=== PATIENT | male | born 1990 | race African-American/Black ===

== ENCOUNTER 2019-09-15 12:04 | Emergency (ER) | payer SELFPAY ==
[2019-09-15 12:09] VITALS: BP 156/80; PULSE 85; TEMP 98.4; BMI 26.3
[2019-09-15] MEDS ORDERED: DEXAMETHASONE LIQUID 0.5 MG/5 ML PO ONE (12:26)
[2019-09-15] MEDS ORDERED: DEXAMETHASONE SOD PHOSPHATE 10 MG/1 ML VIAL ONE (12:28)
[2019-09-15 13:00] LABS: BASO % 0.6 % (0-2.0); EOS % 0.4 % (0-4.5); HEMATOCRIT 44.3 % (35.4-49); HEMOGLOBIN 14.7 GM/dL (11.7-16.9); LYMPH % 24.1 % (8-40); MCH 30.3 pg (25.7-33.7); MCHC 33.2 g/dl (32.0-35.9); MEAN CELL VOLUME 91.1 fl (80-96); MEAN PLT VOLUME 9.8 fl (7.5-11.1); MONO % 7.8 % (3.8-10.2); NEUT % 67.1 % (42.8-82.8); PLATELET COUNT 256 K/MM3 (134-434); RBC 4.86 M/mm3 (4.00-5.60); RDW 13.1 % (11.9-15.9); WHITE BLOOD COUNT 9.9 K/mm3 (4.0-10.0)
[2019-09-15 13:27] LABS: ALBUMIN 4.2 g/dl (3.4-5.0); BILIRUBIN,TOTAL 1.3 mg/dL (0.2-1); CALCIUM 9.4 mg/dL (8.5-10.1); TOT PROT 8.3 g/dl (6.4-8.2)
--- NOTE | 2019-09-15 15:03 | PDOC ---
History of Present Illness - General Chief Complaint: Sore Throat Stated Complaint: SORE THROAT Time Seen by Provider: 09/15/19 12:20 - History of Present Illness Initial Comments: 09/15/19 15:02 28-year-old male with sore throat x2 days no systemic symptoms Past History - Past Medical History Allergies/Adverse Reactions: Allergies Allergy/AdvReac Type Severity Reaction Status Date / Time No Known Allergies Allergy Verified 09/15/19 12:09 Home Medications: Ambulatory Orders Ferrous Sulfate [Feosol] 325 mg PO BIDWM #60 ud 09/30/15 Celecoxib [CeleBREX -] 200 mg PO BID #60 capsule 10/28/15 Colchicine [Colcrys] 1.2 mg PO BID #120 tablet 10/28/15 Oxycodone HCl/Acetaminophen [Percocet 5/325 -] 1 tab PO Q6H #20 tablet 10/28/15 Ranitidine [Zantac -] 150 mg PO BID #60 tablet 10/28/15 Penicillin V Potassium [Pen Vee K -] 500 mg PO QID #40 tablet 09/15/19 Cardiac Disorders: Yes (Pericarditis) COPD: No - Surgical History Cardiac Surgery: Yes - Immunization History Immunization Up to Date: Yes - Psycho Social/Smoking Cessation Hx Smoking History: Never smoked Have you smoked in the past 12 months: Yes Information on smoking cessation initiated: No Hx Alcohol Use: No Drug/Substance Use Hx: No Substance Use Type: Marijuana Hx Substance Use Treatment: No Review of Systems - Review of Systems Constitutional: No: Fever HEENTM: Yes: Throat Pain, Throat Swelling, Difficulty Swallowing *Physical Exam - Vital Signs Last Vital Signs Temp Pulse Resp BP Pulse Ox 98.4 F 85 19 156/80 100 09/15/19 12:07 09/15/19 12:07 09/15/19 12:07 09/15/19 12:07 09/15/19 12:07 - Physical Exam 09/15/19 15:02 GENERAL: The patient is awake, alert, and fully oriented, in no acute distress. HEAD: Normal with no signs of trauma. EYES: sclera anicteric, conjunctiva clear. ENT: Ears normal tympanic membranes normal pharyngeal erythema no exudate mild left-sided swelling no visible abscess or uvular deviation NECK: Normal range of motion LUNGS: Breath sounds equal, clear to auscultation bilaterally. No wheezes, and no crackles. HEART: S1 and S2 without murmur, rub or gallop. ABDOMEN: Soft, nontender, normoactive bowel sounds. No guarding, no rebound. No masses. EXTREMITIES: Normal range of motion, no edema. No clubbing or cyanosis. No cords, erythema, or tenderness. NEUROLOGICAL: Cranial nerves II through XII grossly intact. Normal speech, normal gait. PSYCH: Normal mood, normal affect. SKIN: Warm, Dry, normal turgor, no rashes or lesions noted. ED Treatment Course - LABORATORY CBC & Chemistry Diagram: 09/15/19 12:49 09/15/19 12:49 - ADDITIONAL ORDERS Additional order review: Laboratory Results 09/15/19 12:49 Sodium 141 Potassium 4.0 Chloride 103 Carbon Dioxide 30 Anion Gap 7 L BUN 10.0 Creatinine 1.0 Est GFR (CKD-EPI)AfAm 118.19 Est GFR (CKD-EPI)NonAf 101.97 Random Glucose 97 Calcium 9.4 Total Bilirubin 1.3 H AST 40 H ALT 57 Alkaline Phosphatase 147 H Total Protein 8.3 H Albumin 4.2 09/15/19 12:49 RBC 4.86 MCV 91.1 MCHC 33.2 RDW 13.1 D MPV 9.8 Neutrophils % 67.1 Lymphocytes % 24.1 D Monocytes % 7.8 Eosinophils % 0.4 Basophils % 0.6 - RADIOLOGY Radiology Studies Ordered: Category Date Time Status SOFT TISSUE NECK CT WITH CONTR [CT] Stat CT Scan 09/15/19 13:30 Completed - Medications Given in the ED: ED Medications Discontinued Medications Generic Name Dose Route Start Last Admin Trade Name Juan Davidq PRN Reason Stop Dose Admin Dexamethasone 10 mg 09/15/19 12:26 09/15/19 12:29 Decadron Liquid - PO 09/15/19 12:27 10 mg ONCE ONE Administration Medical Decision Making - Medical Decision Making 09/15/19 15:02 [facility] phone for transfer discussed this case with our emergency room attending 09/15/19 15:24 Patient has elected to sign out AGAINST MEDICAL ADVICE this was discussed with him. Antibiotic sent to the pharmacy he will follow-up at [facility]. He want to avoid the ambulance bill. Discharge - Discharge Information Problems reviewed: Yes Clinical Impression/Diagnosis: Peritonsillar abscess Condition: Stable Disposition: AGAINST MEDICAL ADVICE - Additional Discharge Information Prescriptions: Penicillin V Potassium [Pen Vee K -] 500 mg PO QID #40 tablet - Follow up/Referral - Patient Discharge Instructions - Post Discharge Activity
== END 2019-09-15 15:05 | disposition left against medical advice (07) ==
LOC: JERFT 12:04
DX: J36 Peritonsillar abscess (principal)
CPT/HCPCS: 36415; 70491-TC; 80053; 85025; 87070; 87880; 99282-25; Q9967

== ENCOUNTER 2019-10-16 09:39 | Emergency (ER) | payer SELFPAY ==
[2019-10-16 09:50] VITALS: BP 131/83; PULSE 76; TEMP 97.9; BMI 26.3
[2019-10-16] MEDS ORDERED: DIPHTH,PERTUSS(ACELL),TET 0.5 ML DISP.SYRIN IM ONE ×2 (10:52→10:56)
--- NOTE | 2019-10-16 10:52 | PDOC ---
History of Present Illness - General Chief Complaint: Abscess Boil Stated Complaint: LUMP ON HEAD Time Seen by Provider: 10/16/19 10:22 History Source: Patient - History of Present Illness Associated Symptoms: denies: headache Past History - Travel Traveled outside of the country in the last 30 days: No Close contact w/someone who was outside of country & ill: No - Past Medical History Allergies/Adverse Reactions: Allergies Allergy/AdvReac Type Severity Reaction Status Date / Time No Known Allergies Allergy Verified 10/16/19 09:42 Home Medications: Ambulatory Orders Ferrous Sulfate [Feosol] 325 mg PO BIDWM #60 ud 09/30/15 Celecoxib [CeleBREX -] 200 mg PO BID #60 capsule 10/28/15 Colchicine [Colcrys] 1.2 mg PO BID #120 tablet 10/28/15 Oxycodone HCl/Acetaminophen [Percocet 5/325 -] 1 tab PO Q6H #20 tablet 10/28/15 Ranitidine [Zantac -] 150 mg PO BID #60 tablet 10/28/15 Penicillin V Potassium [Pen Vee K -] 500 mg PO QID #40 tablet 09/15/19 Doxycycline Hyclate 100 mg PO BID 7 Days #14 capsule 10/16/19 Cardiac Disorders: Yes (Pericarditis) COPD: No - Surgical History Cardiac Surgery: Yes (PERICARDIECTOMY) - Immunization History Immunization Up to Date: Yes - Psycho Social/Smoking Cessation Hx Smoking History: Never smoked Have you smoked in the past 12 months: Yes Hx Alcohol Use: No Drug/Substance Use Hx: No Substance Use Type: Marijuana Hx Substance Use Treatment: No Review of Systems - Review of Systems Constitutional: No: Chills, Fever Integumentary: Yes: Lumps (scalp) Neurological: No: Headache, Numbness *Physical Exam - Vital Signs Last Vital Signs Temp Pulse Resp BP Pulse Ox 97.9 F 76 18 131/83 99 10/16/19 09:42 10/16/19 09:42 10/16/19 09:42 10/16/19 09:42 10/16/19 09:42 - Physical Exam General Appearance: Yes: Nourished HEENT: positive: EOMI, QASIM Integumentary: positive: Other (+ quarter sized indurated area on scalp with evidence of hair loss, no fluctance, not tender to touch) Neurologic: positive: alarm installation technician II-XII NML intact, Fully Oriented, Alert, Normal Mood/ Affect, Normal Response, Motor Strength 5/5 Medical Decision Making - Medical Decision Making 28 years old male with scalp abscess for 3 weeks Unsure of last tetanus. Patient denies headache, fever, chills. Exam consist of a 3 cm area of induration with sign of hair loss. There is no warmth. antibiotics trial. Patient advised to follow-up with dermatology. 10/16/19 16:48 Discharge - Discharge Information Problems reviewed: Yes Clinical Impression/Diagnosis: Scalp abrasion Qualifiers: Encounter type: initial encounter Qualified Code(s): S00.01XA - Abrasion of scalp, initial encounter Condition: Stable Disposition: HOME - Admission No - Additional Discharge Information Prescriptions: Doxycycline Hyclate 100 mg PO BID 7 Days #14 capsule Prescription Drug Monitoring Program (I-STOP) results: I-STOP not reviewed - Follow up/Referral Referrals: Elliott Laughlin [Staff Physician] - Tony Watson MD [Non Staff, Medical] - - Patient Discharge Instructions Patient Printed Discharge Instructions: DI for Skin Abscess Additional Instructions: Apply warm compress to area. Take antibiotic as prescribed. Follow-up with dermatology for further evaluation. Return to the emergency room if worsening symptoms occurs - Post Discharge Activity
== END 2019-10-16 11:22 | disposition home or self-care (01) ==
LOC: JER 09:39 → JERFT 09:39
PROC: 3E0234Z Introduction of Serum, Toxoid and Vaccine into Muscle, Percutaneous Approach (ICD-10-PCS; principal; 2019-10-16)
DX: L02.811 Cutaneous abscess of head [any part, except face] (principal); S00.01XA Abrasion of scalp, initial encounter; X58.XXXA Exposure to other specified factors, initial encounter; Y93.89 Activity, other specified; Y92.89 Other specified places as the place of occurrence of the external cause; Y99.8 Other external cause status
CPT/HCPCS: 90715; 99281-25

== ENCOUNTER 2021-12-29 08:59 | Observation (INO) | payer BC ==
[2021-12-29 09:05] VITALS: BMI 24.3
[2021-12-29 10:04] LABS: BASO % 0.7 % (0-2.0); HEMATOCRIT 39.7 % (35.4-49); HEMOGLOBIN 12.9 GM/dL (11.7-16.9); LYMPH % 32.3 % (8-40); MCHC 32.4 g/dl (32.0-35.9); MEAN CELL VOLUME 89.5 fl (80-96); MEAN PLT VOLUME 9.8 fl (7.5-11.1); MONO % 6.5 % (3.8-10.2); NEUT % 59.5 % (42.8-82.8); PLATELET COUNT 265 10^3/uL (134-434); RBC 4.44 M/mm3 (4.00-5.60); WHITE BLOOD COUNT 5.6 K/mm3 (4.0-10.0)
[2021-12-29 10:23] LABS: CALCIUM 8.9 mg/dL (8.5-10.1)
[2021-12-29 10:24] LABS: ALBUMIN 3.8 g/dl (3.4-5.0); BLOOD UREA NITROGEN 12.4 mg/dL (7-18)
[2021-12-29 10:29] LABS: BILIRUBIN,TOTAL 1.2 mg/dL (0.2-1); TOT PROT 7.5 g/dl (6.4-8.2)
[2021-12-29 13:15] LABS: N-TERMINAL BNP 59.9 pg/ml (5-125)
[2021-12-30 08:11] LABS: BASO % 0.6 % (0-2.0); EOS % 1.1 % (0-4.5); HEMATOCRIT 38.8 % (35.4-49); HEMOGLOBIN 12.8 GM/dL (11.7-16.9); LYMPH % 38.1 % (8-40); MCH 29.3 pg (25.7-33.7); MCHC 33.1 g/dl (32.0-35.9); MEAN CELL VOLUME 88.7 fl (80-96); MEAN PLT VOLUME 9.9 fl (7.5-11.1); MONO % 8.3 % (3.8-10.2); NEUT % 51.9 % (42.8-82.8); PLATELET COUNT 251 10^3/uL (134-434); RBC 4.37 M/mm3 (4.00-5.60); RDW 12.7 % (11.9-15.9); WHITE BLOOD COUNT 5.4 K/mm3 (4.0-10.0)
[2021-12-30 08:22] LABS: CALCIUM 8.8 mg/dL (8.5-10.1)
[2021-12-30 08:23] LABS: ALBUMIN 3.6 g/dl (3.4-5.0); BLOOD UREA NITROGEN 12.5 mg/dL (7-18); MAGNESIUM 2.1 mg/dL (1.8-2.4)
[2021-12-30 08:24] LABS: PHOSPHOROUS 4.1 mg/dL (2.5-4.9)
[2021-12-30 08:27] LABS: BILIRUBIN,TOTAL 1.1 mg/dL (0.2-1); TOT PROT 7.2 g/dl (6.4-8.2)
[2021-12-30 08:46] LABS: INR 1.13 (0.83-1.09)
[2021-12-30 08:48] LABS: ACTIVATED PTT 30.3 SECONDS (25.2-36.5)
[2021-12-30] MEDS: ENOXAPARIN NA (PORCINE) 40 MG/0.4 ML DISP.SYRIN SQ SCH (10:30)
[2021-12-31] MEDS ORDERED: ACETAMINOPHEN 325 MG TABLET (FP) PO ONE (02:52)
[2021-12-31] MEDS ORDERED: HYDROCORTISONE 2.5% TOPICAL CREAM 30 GM TUBE PR PRN (03:03)
[2021-12-31] MEDS ORDERED: ACETAMINOPHEN 325 MG TABLET (FP) ONE (03:45)
[2021-12-31 08:14] VITALS: PULSE 66; TEMP 98
[2021-12-31 09:18] LABS: HEMATOCRIT 39.1 % (35.4-49); HEMOGLOBIN 12.9 GM/dL (11.7-16.9); MCH 29.1 pg (25.7-33.7); MCHC 33.1 g/dl (32.0-35.9); MEAN CELL VOLUME 87.9 fl (80-96); PLATELET COUNT 252 10^3/uL (134-434); RBC 4.45 M/mm3 (4.00-5.60); RDW 12.7 % (11.9-15.9); WHITE BLOOD COUNT 5.4 K/mm3 (4.0-10.0)
[2021-12-31 09:51] LABS: BLOOD UREA NITROGEN 12.1 mg/dL (7-18); CALCIUM 8.7 mg/dL (8.5-10.1); MAGNESIUM 2.1 mg/dL (1.8-2.4)
[2021-12-31 09:55] LABS: PHOSPHOROUS 3.7 mg/dL (2.5-4.9)
[2021-12-31] MEDS ORDERED: DOCUSATE SODIUM 100 MG CAPSULE (FP) PO SCH (10:00)
[2021-12-31] MEDS ORDERED: DOCUSATE SODIUM 100 MG CAPSULE (FP) PO ONE (10:16)
[2021-12-31] MEDS ORDERED: ENOXAPARIN NA (PORCINE) 40 MG/0.4 ML DISP.SYRIN SQ ONE (10:16)
[2021-12-31 11:54] LABS: ERYTHROCYTE SEDIMENTATION RATE 12 mm/hr (0-10)
[2021-12-31] MEDS: ENOXAPARIN NA (PORCINE) 40 MG/0.4 ML DISP.SYRIN SQ SCH (12:39)
[2021-12-31 14:03] VITALS: BP 156/101
[2021-12-31] MEDS ORDERED: MESALAMINE 1000 MG/SUPP.RECT SUPP RC SCH (22:00)
== END 2021-12-31 12:31 | disposition home or self-care (01) ==
LOC: JER 08:59 → JERBED 11:39
PROVIDERS: ADMIT Internal Medicine; ATTEND Internal Medicine
DX: I31.9 Disease of pericardium, unspecified (principal); R94.31 Abnormal electrocardiogram [ECG] [EKG]; R55 Syncope and collapse; R42 Dizziness and giddiness; Z82.41 Family history of sudden cardiac death; I10 Essential (primary) hypertension
CPT/HCPCS: 36415; 71045-TC-FY; 80048; 80053; 80061; 83036; 83735; 83880; 84100; 84443; 84484; 85025; 85027; 85610; 85651; 85730; 86038; 86140; 93005; 93010; 93306-TC; 99285-25; C9803-CS; G0378; U0003; U0005

== ENCOUNTER 2022-05-14 20:21 | Emergency (ER) | payer BC ==
[2022-05-14 20:32] VITALS: BP 153/103; PULSE 86; RESP 16; TEMP 98.5; BMI 23.1
[2022-05-14] MEDS ORDERED: KETOROLAC TROMETHAMINE 60 MG/2 ML VIAL IM ONE (20:43)
[2022-05-14] MEDS ORDERED: predniSONE 20 MG TABLET (UD) PO ONE (20:43)
[2022-05-14] MEDS ORDERED: METHOCARBAMOL 750 MG TABLET PO STA (20:44)
[2022-05-14] MEDS ORDERED: predniSONE 20 MG TABLET (UD) ONE (20:48)
[2022-05-14] MEDS ORDERED: METHOCARBAMOL 500 MG TABLET ONE (20:48)
[2022-05-14] MEDS ORDERED: METHOCARBAMOL 500 MG TABLET PO ONE (20:48)
[2022-05-14] MEDS ORDERED: KETOROLAC TROMETHAMINE 60 MG/2 ML VIAL ONE (20:48)
== END 2022-05-14 20:57 | disposition home or self-care (01) ==
LOC: FER 20:21
PROC: 3E0233Z Introduction of Anti-inflammatory into Muscle, Percutaneous Approach (ICD-10-PCS; principal; 2022-05-14)
DX: M54.42 Lumbago with sciatica, left side (principal)
CPT/HCPCS: 99284-25

== ENCOUNTER 2022-08-06 09:39 | Emergency (ER) | payer BC ==
[2022-08-06 09:58] VITALS: BP 148/99; PULSE 79; RESP 16; TEMP 98.3; BMI 23.1
[2022-08-06] MEDS ORDERED: METHOCARBAMOL 500 MG TABLET PO ONE (10:16)
[2022-08-06] MEDS ORDERED: predniSONE 20 MG TABLET (UD) PO ONE (10:16)
[2022-08-06] MEDS ORDERED: KETOROLAC TROMETHAMINE 30 MG/1 ML VIAL IM ONE (10:16)
[2022-08-06] MEDS ORDERED: predniSONE 20 MG TABLET (UD) ONE (10:19)
[2022-08-06] MEDS ORDERED: METHOCARBAMOL 500 MG TABLET ONE (10:19)
[2022-08-06] MEDS ORDERED: KETOROLAC TROMETHAMINE 30 MG/1 ML VIAL ONE (10:20)
== END 2022-08-06 10:43 | disposition home or self-care (01) ==
LOC: FER 09:39
PROC: 3E023GC Introduction of Other Therapeutic Substance into Muscle, Percutaneous Approach (ICD-10-PCS; principal; 2022-08-06)
DX: M54.50 Low back pain, unspecified (principal)
CPT/HCPCS: 99284-25

== ENCOUNTER 2022-12-24 10:52 | Emergency (ER) | payer OTHER, BC ==
[2022-12-24 11:09] VITALS: BP 161/96; PULSE 74; RESP 18; TEMP 97.9; BMI 37.2
[2022-12-24] MEDS ORDERED: DIPHTH,PERTUSS(ACELL),TET 0.5 ML DISP.SYRIN IM ONE ×2 (12:29→12:36)
[2022-12-24] MEDS ORDERED: IBUPROFEN 600 MG TABLET (FP) PO ONE ×2 (12:30→12:35)
== END 2022-12-24 13:39 | disposition home or self-care (01) ==
LOC: JERFT 10:52
PROC: 3E0234Z Introduction of Serum, Toxoid and Vaccine into Muscle, Percutaneous Approach (ICD-10-PCS; principal; 2022-12-24)
DX: S90.511A Abrasion, right ankle, initial encounter (principal); M25.571 Pain in right ankle and joints of right foot; W22.8XXA Striking against or struck by other objects, initial encounter; Y93.89 Activity, other specified; Y99.0 Civilian activity done for income or pay
CPT/HCPCS: 73590-TC-RT-FY; 73610-TC-RT-FY; 90715; 99283-25

== ENCOUNTER 2023-09-06 20:22 | Emergency (ER) | payer BC, OTHER ==
[2023-09-06 20:44] VITALS: BP 130/82; PULSE 86; RESP 16; TEMP 99; BMI 25.7
== END 2023-09-06 21:05 | disposition home or self-care (01) ==
LOC: FER 20:22
DX: K64.9 Unspecified hemorrhoids (principal)
CPT/HCPCS: 99282-25

== ENCOUNTER 2024-04-30 20:47 | Emergency (ER) | payer OTHER, BC ==
[2024-04-30 20:56] VITALS: RESP 18; BMI 25.7
[2024-04-30] MEDS ORDERED: ACETAMINOPHEN INJECTION 100 ML IVPB ONE (21:17)
[2024-04-30] MEDS: ACETAMINOPHEN 1000 MG/100 ML BAG IVPB ONE (21:28)
[2024-04-30] MEDS: SODIUM CHLORIDE 1,000 ML IV STA (21:28)
[2024-04-30 21:37] LABS: BASO % 0.2 % (0-2.0); EOS % 0.3 % (0-4.5); HEMATOCRIT 37.8 % (35.4-49); HEMOGLOBIN 12.8 GM/dL (11.7-16.9); LYMPH % 34.8 % (8-40); MCH 30.3 pg (25.7-33.7); MCHC 33.8 g/dl (32.0-35.9); MEAN CELL VOLUME 89.6 fl (80-96); MEAN PLT VOLUME 9.2 fl (7.5-11.1); MONO % 7.4 % (3.8-10.2); NEUT % 57.3 % (42.8-82.8); PLATELET COUNT 240 10^3/uL (134-434); RBC 4.22 M/mm3 (4.00-5.60)
[2024-04-30] MEDS ORDERED: morphine SULFATE 4 MG/ML VIAL ONE (21:37)
[2024-04-30 21:43] LABS: INR 1.08 (0.83-1.09); PROTHROMBIN TIME (PATIENT) 12.2 SEC (9.7-13.0)
[2024-04-30] MEDS: morphine CARPU-JECT 4 MG/1 ML DISP.SYRIN IVPUSH ONE (21:44)
[2024-04-30 21:46] LABS: ACTIVATED PTT 25.8 SECONDS (25.2-36.5)
[2024-04-30 21:54] LABS: POTASSIUM 3.6 mmol/L (3.5-5.1)
[2024-04-30 21:56] LABS: BLOOD UREA NITROGEN 10.9 mg/dL (7-18); CALCIUM 8.8 mg/dL (8.5-10.1)
[2024-04-30 22:00] LABS: CREATININE 1.6 mg/dL (0.55-1.3)
[2024-04-30 22:01] LABS: BILIRUBIN,TOTAL 0.8 mg/dL (0.2-1); TOT PROT 7.5 g/dl (6.4-8.2)
[2024-04-30 23:26] VITALS: BP 120/56; PULSE 90; TEMP 98.1
[2024-05-01] MEDS ORDERED: HYDROmorphone HCL CARPU-JECT 2 MG/1 ML DISP.SYRIN ONE (00:01)
[2024-05-01] MEDS: HYDROmorphone HCl 2 MG/ML VIAL IVPUSH ONE (00:04)
== END 2024-05-01 00:12 | disposition short-term general hospital (02) ==
LOC: JER 20:47
PROC: 3E033NZ Introduction of Analgesics, Hypnotics, Sedatives into Peripheral Vein, Percutaneous Approach (ICD-10-PCS; principal; 2024-04-30)
PROC: 3E033NZ Introduction of Analgesics, Hypnotics, Sedatives into Peripheral Vein, Percutaneous Approach (ICD-10-PCS; 2024-04-30)
PROC: 3E033NZ Introduction of Analgesics, Hypnotics, Sedatives into Peripheral Vein, Percutaneous Approach (ICD-10-PCS; 2024-04-30)
PROC: 3E0337Z Introduction of Electrolytic and Water Balance Substance into Peripheral Vein, Percutaneous Approach (ICD-10-PCS; 2024-04-30)
DX: S82.392A Other fracture of lower end of left tibia, initial encounter for closed fracture (principal); S82.832A Other fracture of upper and lower end of left fibula, initial encounter for closed fracture; V23.49XA Other motorcycle driver injured in collision with car, pick-up truck or van in traffic accident, initial encounter; Y92.410 Unspecified street and highway as the place of occurrence of the external cause; Z20.822 Contact with and (suspected) exposure to COVID-19
CPT/HCPCS: 0241U-QW; 36415; 73590-TC-LT-FY; 73610-TC-LT-FY; 73630-TC-LT; 80053; 85025; 85610; 85730; 86850; 86900; 86901; 93005; 93010; 99285-25; J0131